=== PATIENT | male | born 1960 | race Two or more races ===

== ENCOUNTER 2022-05-02 05:06 | Inpatient (IN) | payer MEDICAID, OTHER ==
[~2022-05-02] VITALS: Ht 177.8 cm; Wt 101.4 kg
[2022-05-02 06:47] LABS: Urine Bacteria FEW /hpf (None Seen); Urine Blood 1+ /uL (Negative); Urine Mucus FEW (None Seen); Urine Specific Gravity 1.017 (1.001-1.035); Urine Sperm PRESENT /hpf (None Seen); Urine WBC 63 /hpf (0 - 3)
[2022-05-02] MEDS ORDERED: SODIUM CHLORIDE 0.9% 1,000 ML IV ONE ×2 (07:15)
[2022-05-02] MEDS ORDERED: ONDANSETRON HCL 4 MG/2 ML VIAL IV ONE ×2 (07:15→10:45)
[2022-05-02] MEDS ORDERED: KETOROLAC TROMETH 30 MG/ML 1ML VIAL IV ONE (07:15)
[2022-05-02 07:37] LABS: Basophils # (auto) 0 10 ^3/uL (0-0.2); Basophils % (auto) 0.2 % (0.0-2.0); Eosinophils # (auto) 0 10 ^3/uL (0-0.8); Eosinophils % (auto) 0.1 % (0.0-7.0); Hematocrit 43.1 % (41.0-53.0); Hemoglobin 14.2 g/dL (13.5-17.5); Lymphocytes # (auto) 0.7 10 ^3/uL (0.4-5.4); Mean Corpuscular Hemoglobin 30.4 pg (28.0-32.0); Mean Corpuscular Hgb Conc. 32.9 g/dL (32.0-36.0); Mean Corpuscular Volume 92.3 fL (80.0-100.0); Monocytes # (auto) 0.6 10 ^3/uL (0-1.3); Monocytes % (auto) 4.7 % (0.0-12.0); Neutrophils # (auto) 10.8 10 ^3/uL (1.6-8.6); Red Blood Cells 4.67 10^6/uL (4.5-5.90); Red Cell Distribution Width 14.4 % (11.8-14.3); White Blood Cell 12.2 10^3/uL (4.4-10.8)
[2022-05-02] MEDS ORDERED: cefTRIAXone 1GM/50ML D5W 50 ML IV ONE (07:45)
[2022-05-02 07:52] LABS: Albumin 3.8 g/dL (3.4-5.0); Calcium 9.2 mg/dL (8.5-10.1)
[2022-05-02 07:56] LABS: BUN/Creatinine Ratio 8.8; Bilirubin, Total 0.9 mg/dL (0.2-1.0)
[2022-05-02] MEDS ORDERED: TAMSULOSIN HYDROCHLORIDE 0.4 MG CAP PO ONE ×2 (09:00→14:30)
[2022-05-02] MEDS ORDERED: MORPHINE SULFATE 4 MG/ML SYR/VIAL IV ONE (10:45)
[2022-05-02] MEDS ORDERED: ONDANSETRON HCL 4 MG/2 ML VIAL IV PRN (14:00)
[2022-05-02] MEDS ORDERED: KETOROLAC TROMETH 30 MG/ML 1ML VIAL IV PRN ×2 (14:30→14:45)
[2022-05-02] MEDS ORDERED: MANNITOL FTV 25% 12.5 GM/50 ML 50 ML IV ONE (14:30)
[2022-05-02] MEDS ORDERED: hydrALAZINE HCL 20 MG/ML VL IV PRN (14:45)
[2022-05-02] MEDS ORDERED: TEMAZEPAM 15 MG CAP PO PRN (15:00)
[2022-05-02 15:29] LABS: Cholesterol 171 mg/dL (< 200)
[2022-05-02 15:31] LABS: HDL Cholesterol 63 mg/dL (40-59); LDL Cholesterol 102 mg/dL (< 100); Triglycerides 62 mg/dL (< 150)
[2022-05-02 15:53] LABS: Amphetamine Screen, Urine NEGATIVE (NEGATIVE); Barbiturate Scree,Urine NEGATIVE (NEGATIVE); Benzodiazephine Screen, Urine NEGATIVE (NEGATIVE); Cannabinoid Screen, Urine POSITIVE (NEGATIVE); Cocaine Screen, Urine NEGATIVE (NEGATIVE); Opiate Scree,Urine NEGATIVE (NEGATIVE); Phencyclidine Screen, Urine NEGATIVE (NEGATIVE)
[2022-05-03 06:07] LABS: Basophils # (auto) 0 10 ^3/uL (0-0.2); Basophils % (auto) 0.1 % (0.0-2.0); Eosinophils # (auto) 0 10 ^3/uL (0-0.8); Eosinophils % (auto) 0.1 % (0.0-7.0); Hematocrit 38.3 % (41.0-53.0); Hemoglobin 12.8 g/dL (13.5-17.5); Lymphocytes % (auto) 10.5 % (10.0-50.0); Mean Corpuscular Hgb Conc. 33.4 g/dL (32.0-36.0); Mean Corpuscular Volume 92.7 fL (80.0-100.0); Monocytes # (auto) 0.7 10 ^3/uL (0-1.3); Monocytes % (auto) 7.2 % (0.0-12.0); Neutrophils # (auto) 7.7 10 ^3/uL (1.6-8.6); Neutrophils % (auto) 82.1 % (37.0-80.0); Red Blood Cells 4.13 10^6/uL (4.5-5.90); Red Cell Distribution Width 14.3 % (11.8-14.3); White Blood Cell 9.4 10^3/uL (4.4-10.8)
[2022-05-03 06:22] LABS: Potassium 3.7 mmol/L (3.5-5.1)
[2022-05-03 06:28] LABS: Albumin 2.9 g/dL (3.4-5.0); BUN/Creatinine Ratio 12.2; Bilirubin, Total 0.8 mg/dL (0.2-1.0); Calcium 8.4 mg/dL (8.5-10.1); Total Protein 6.7 g/dL (6.4-8.2)
[2022-05-03 08:40] LABS: INR 1.03 (0.9-1.15); Partial Thromboplastin Time 30.9 sec (24.6-33.4)
[2022-05-03] MEDS: NICOTINE 14 MG/24HR TOPICAL PATCH TD SCH (10:00)
[2022-05-03] MEDS ORDERED: ENOXAPARIN SOD 40 MG/0.4 ML SYRINGE SC SCH (10:00)
[2022-05-03] MEDS: cefTRIAXone 1GM/50ML D5W 50 ML IV SCH (11:10)
[2022-05-03] MEDS: SODIUM CHLORIDE 0.9% 1,000 ML IV SCH ×2 (11:15→21:00)
[2022-05-03 12:01] VITALS: BP 100/64
[2022-05-03 13:00] VITALS: BP 132/74
[2022-05-03 16:52] VITALS: BP 141/74
[2022-05-03] MEDS ORDERED: TAMSULOSIN HYDROCHLORIDE 0.4 MG CAP PO SCH (18:00)
[2022-05-03 21:46] VITALS: BP 133/80
[2022-05-04 04:57] VITALS: BP 140/74
[2022-05-04] MEDS: SODIUM CHLORIDE 0.9% 1,000 ML IV SCH (06:06)
[2022-05-04 06:39] LABS: BUN/Creatinine Ratio 15.1; Basophils # (auto) 0 10 ^3/uL (0-0.2); Basophils % (auto) 0.3 % (0.0-2.0); Calcium 8.3 mg/dL (8.5-10.1); Eosinophils # (auto) 0 10 ^3/uL (0-0.8); Eosinophils % (auto) 0.6 % (0.0-7.0); Hematocrit 37.2 % (41.0-53.0); Hemoglobin 12.4 g/dL (13.5-17.5); Lymphocytes # (auto) 1.3 10 ^3/uL (0.4-5.4); Lymphocytes % (auto) 19.2 % (10.0-50.0); Mean Corpuscular Hemoglobin 31.2 pg (28.0-32.0); Mean Corpuscular Hgb Conc. 33.4 g/dL (32.0-36.0); Mean Corpuscular Volume 93.4 fL (80.0-100.0); Monocytes # (auto) 0.6 10 ^3/uL (0-1.3); Monocytes % (auto) 8.4 % (0.0-12.0); Neutrophils # (auto) 4.9 10 ^3/uL (1.6-8.6); Neutrophils % (auto) 71.5 % (37.0-80.0); Potassium 3.9 mmol/L (3.5-5.1); Red Blood Cells 3.99 10^6/uL (4.5-5.90); Red Cell Distribution Width 14.4 % (11.8-14.3); White Blood Cell 6.8 10^3/uL (4.4-10.8)
[2022-05-04 08:37] VITALS: BP 134/80
[2022-05-04] MEDS: cefTRIAXone 1GM/50ML D5W 50 ML IV SCH (09:11)
[2022-05-04] MEDS: NICOTINE 14 MG/24HR TOPICAL PATCH TD SCH (09:22)
[2022-05-04] MEDS ORDERED: LEVO500T31 PO (10:41)
[2022-05-04] MEDS ORDERED: KETO10TA PO (10:41)
[2022-05-04] MEDS ORDERED: TAM04C PO (10:41)
[2022-05-04 13:00] VITALS: BP 148/82
== END 2022-05-04 14:58 | disposition home or self-care (01) | DRG 463 ==
LOC: ER 05:06 → OVERFLOW 14:05 → EAST 05-03 08:46
PROVIDERS: ADMIT Registered Nurse; ATTEND Internal Medicine
DX: N13.6 Pyonephrosis (principal); N17.0 Acute kidney failure with tubular necrosis; E71.32 Disorders of ketone metabolism; E66.01 Morbid (severe) obesity due to excess calories; I10 Essential (primary) hypertension; N20.0 Calculus of kidney; K42.9 Umbilical hernia without obstruction or gangrene; K44.9 Diaphragmatic hernia without obstruction or gangrene; K57.30 Diverticulosis of large intestine without perforation or abscess without bleeding; N28.1 Cyst of kidney, acquired; N43.3 Hydrocele, unspecified; D17.71 Benign lipomatous neoplasm of kidney; K40.20 Bilateral inguinal hernia, without obstruction or gangrene, not specified as recurrent; Z20.822 Contact with and (suspected) exposure to COVID-19; F17.210 Nicotine dependence, cigarettes, uncomplicated; M75.92 Shoulder lesion, unspecified, left shoulder; Z87.442 Personal history of urinary calculi; Z68.32 Body mass index [BMI] 32.0-32.9, adult; Z71.6 Tobacco abuse counseling
CPT/HCPCS: 36415; 71045; 74176; 76775; 80048; 80053; 80061; 80307; 80320; 81001; 83036; 84484; 85025; 85610; 85730; 87086; 96365; 96375; 96376; G0378; J0696; J1885; J2405